=== PATIENT | female | born 1955 | race Caucasian/White ===

== ENCOUNTER → 2020-04-24 10:32 | Outpatient (CLI) | payer BC, MEDICARE, SELFPAY ==
--- NOTE | 2020-04-24 | DI.US.S_ITS ---
PROCEDURE: US RENAL COMPLETE INDICATIONS: CALCULUS OF URETER TECHNIQUE: Real-time scanning was performed of the kidneys and bladder, with image documentation. COMPARISON: Outside Film, CT, CT ABDOMEN PELVIS WITHOUT CONTRAST, 04/02/2020, 15:23. FINDINGS: Kidneys: Kidneys are normal in size. Right kidney measures 11.8 cm long; left kidney measures 12.5 cm long. Right renal cortical thickness is 1.5 cm; left renal cortical thickness is 2.0 cm. Renal cortical echotexture is normal. No hydronephrosis or nephrolithiasis. No suspicious solid mass lesions. Sub cm right superior pole peripelvic cyst. Bladder: Pre-void bladder volume is 428 mL. Post-void residual is 76 mL. Pre-void images demonstrate no intraluminal masses or stones. On pre-void images, bilateral ureteral jets are noted with color Doppler interrogation. (Of note, ureteral jets may not be detectable in up to 25% of cases due to insufficient differences in specific gravity between ureteral and bladder urine). Miscellaneous: No free pelvic fluid. IMPRESSION: 1. Sub cm right peripelvic cyst; otherwise normal appearance of the kidneys. Dictated by: Kd ARCHIBALD Interpreted: Woodrow Craft MD on 04/24/2020 at 11:57 Approved by: Woodrow Craft M.D. on 04/24/2020 at 12:05
== END ==
PROVIDERS: Family Provider Internal Medicine Cardiovascular Disease; PCP Internal Medicine; Referring Provider Urology; Visit Provider Urology
DX: N20.1 Calculus of ureter (principal); N28.1 Cyst of kidney, acquired
CPT/HCPCS: 76770

== ENCOUNTER → 2021-07-18 12:36 | Outpatient (CLI) | payer MEDICARE, SELFPAY ==
--- NOTE | 2021-07-18 | DI.MRI.S_ITS ---
BREAST MRI OF BOTH BREASTS: 07/18/2021 CLINICAL: Abnormal mammogram. Comparison is made to exams dated: 05/31/2021 ultrasound, 12/25/2020 ultrasound - [facility], and 06/28/2013 mammogram - [facility]. INDICATIONS: Other abnormal and inconclusive findings on diagno TECHNIQUE: The patient was placed prone in a dedicated breast imaging coil. Precontrast axial STIR and 3D FLASH without fat saturation sequences were obtained. Both before and after bolus injection of contrast, sequential 1-minute axial 3D FLASH with fat saturation sequences for 3 time points, with subtraction images and maximum intensity projections (MIP's) generated. Delayed sagittal FLASH images with fat saturation were also obtained. Computer-aided detection, including computer algorithm analysis of MRI image data for lesion detection and characterization, pharmacokinetic analysis, with further physician review for interpretation, was performed. FINDINGS: Image quality: Excellent. There is no background parenchymal enhancement due to bilateral mastectomies. Right breast: Status post mastectomy with retropectoral implant placement. Multiple radial folds are noted. Nonenhancing scar tissue is seen along the medial and inferior portion of the right breast. Scattered foci of magnetic susceptibility artifact are seen throughout the right breast related to postsurgical changes. There is mild skin and trabecular thickening that is more prominent inferiorly, most likely related to prior radiation changes, which have decreased when compared to the prior MRI from 03/18/2019. Foci of T1-hyperintense signal with hypointense signal on fat-suppressed T2-weighted images and no enhancement on post contrast images, located predominantly within the lateral right breast, are consistent with areas of benign fat necrosis. These correspond with the previously seen lesions on ultrasound from 05/31/2021, with the largest lesion seen at the 8 o'clock position measuring 1.2 cm (55/3, 17/2, 49/6). Left breast: Status post mastectomy with retropectoral implant placement. Multiple radial folds are seen. Scattered foci of metallic susceptibility artifact are seen related to the prior surgery. Multiple circumscribed nonenhancing areas of abnormal signal are seen predominantly within the medial and superior left breast, with hyperintense signal on T1-weighted images and hypointense signal on fat-suppressed T2-weighted images, consistent with benign fat necrosis and corresponding to the abnormalities seen on left breast ultrasound from 12/25/2020. Miscellaneous: Surgical clips are seen in the right axilla. No significant right or left axillary or internal mammary lymphadenopathy. Sternotomy wires are present. The included portions of the upper abdomen demonstrate no acute abnormality. IMPRESSION: BENIGN 1. Postsurgical changes are seen from bilateral mastectomies with implant reconstruction. 2. Scattered non-enhancing foci of benign fat necrosis are seen in each breast corresponding to the previously seen bilateral sonographic abnormalities. 3. No suspicious mass or abnormal non mass enhancement in the right or left breast. 4. Postsurgical changes are seen in the right axilla. No significant axillary or internal mammary lymphadenopathy. BIRADS 2: Benign. Follow-up with ACR/ACS guidelines. This exam was interpreted at Station ID: [id number]. Electronically Signed By: Woodrow Craft M.D. ar/:07/18/2021 16:04:36 Entry: - 07/19/2021 07:09:18 ACR BI-RADS Category 2: Benign Finding(s) [id number]
== END ==
PROVIDERS: Family Provider Internal Medicine Cardiovascular Disease; PCP Internal Medicine; Referring Provider Internal Medicine; Visit Provider Internal Medicine
DX: R92.8 Other abnormal and inconclusive findings on diagnostic imaging of breast (principal); N64.1 Fat necrosis of breast; Z90.13 Acquired absence of bilateral breasts and nipples; Z98.82 Breast implant status
CPT/HCPCS: 77049